=== PATIENT | female | born 1990 | race African-American/Black ===

== ENCOUNTER 2016-05-05 20:41 | Emergency (ER) | payer OTHER ==
[~2016-05-05] VITALS: Ht 160 cm; Wt 84.8 kg
[~2016-05-05 20:41] MED LIST: APAP W/CODEINE1 TA2 PO; BACTRIM DS TAB1 EACH PO; COLACE100 MG PO; DAY-TIME COLD-1 EACH PO; FERROUS GLUCON325 M4 PO; FLAGYL500 MG PO; FLUOXETINE HCL10 M1 PO; IBUPROFEN 400400 M2 PO; IBUPROFEN 600600 M1 PO; IRON325 PO; NORCO 5-325 TA1 EACH PO; PENICILLIN V P500 MG PO; PENICILLIN VK500 MG PO; PHENERGAN 25 MG25 M1 PO; PREDNISONE 20 M20 M1 PO; PREDNISONE50 MG PO; SEROQUEL 50 MG50 M1 PO; TESSALON PERLE100 MG PO; TRINATE TABLET1 TAB PO; TYLENOL W/CODEI1 TA2 PO; VENTOLIN HFA 1818 GM INH; ZOFRAN ODT4 MG PO; ZPAK PO
[2016-05-05] MEDS ORDERED: SERTRALINE HCL50 MG PO (21:14)
[2016-05-05 21:37] LABS: URINE BILIRUBIN NEGATIVE (Negative); URINE BLOOD TRACE (Negative); URINE COLOR YELLOW; URINE GLUCOSE-RANDOM* NEGATIVE (Negative); URINE KETONES NEGATIVE (Negative); URINE NITRITE NEGATIVE (Negative); URINE PROTEIN (DIPSTICK) NEGATIVE (Negative); URINE SPECIFIC GRAVITY 1.025 (1.003-1.035)
[2016-05-05 21:50] LABS: ABSOLUTE NEUTROPHILS 3.4 thou/uL (1.4-8.2); EOSINOPHILS 4.6 % (0.0-3.0); HEMATOCRIT 32.3 % (37.0-47.0); HEMOGLOBIN 10.6 gm/dL (12.0-15.0); LYMPHOCYTES 44.7 % (24.0-44.0); MCH 27.7 pg (26.0-34.0); MCHC 32.7 % (28.0-37.0); MCV 84.7 fL (80.0-100.0); MONOCYTES 7.3 % (1.0-8.0); PLATELET COUNT 267 thou/uL (150-400); POLYS 42.4 % (36.0-66.0); RBC 3.81 mil/uL (4.20-5.00); RDW 15.9 % (10.5-14.5)
[2016-05-05 21:54] LABS: CASTS None Seen /LPF (None Seen); CRYSTALS None Seen /LPF (None Seen); SQUAMOUS 0-3 Few /LPF (0-3); URINE WBC None Seen /HPF (0-5)
[2016-05-05 21:55] LABS: BACTERIA 1-9 Few /HPF (None Seen); URINE RBC 0-2 Rare /HPF (0-2)
[2016-05-05 21:56] LABS: MANUAL DIFF NO
[2016-05-05 22:01] LABS: ANION GAP 8 mmol/L (7-16); BUN 12 mg/dL (7-18); CALCIUM 8.9 mg/dL (8.5-10.1); CHLORIDE 105 mmol/L (98-107); CO2 27 mmol/L (21-32); CREATININE 0.9 mg/dL (0.6-1.3); GLUCOSE 96 mg/dL (70-99); SODIUM 140 mmol/L (136-145)
[2016-05-05 22:07] LABS: ALBUMIN 3.5 g/dL (3.4-5.0); ALKALINE PHOSPHATASE 65 U/L (46-116); DIRECT BILIRUBIN < 0.1 mg/dL (<0.1-0.3); SGOT 6 U/L (15-37); SGPT 16 U/L (30-65); TOTAL BILIRUBIN 0.2 mg/dL (<0.1-1.0); TOTAL PROTEIN 7.8 g/dL (6.4-8.2)
[2016-05-05] MEDS ORDERED: TIZANIDINE HCL4 MG PO (22:47)
[2016-05-05 22:59] VITALS: BP 113/63
== END 2016-05-05 22:59 | disposition home or self-care (01) ==
LOC: ER 20:41
PROVIDERS: Nurse Practitioner
DX: S39.012A Strain of muscle, fascia and tendon of lower back, initial encounter (principal); L29.9 Pruritus, unspecified; Z87.891 Personal history of nicotine dependence; X58.XXXA Exposure to other specified factors, initial encounter; Y93.89 Activity, other specified; Y92.89 Other specified places as the place of occurrence of the external cause; Y99.8 Other external cause status

== ENCOUNTER 2016-05-08 06:49 | Emergency (ER) | payer OTHER ==
[~2016-05-08] VITALS: Ht 162.6 cm; Wt 84.8 kg
[~2016-05-08 06:49] MED LIST changes: +SERTRALINE HCL50 MG PO; +TIZANIDINE HCL4 MG PO
[2016-05-08 07:50] VITALS: BP 106/57
[2016-05-08] MEDS ORDERED: PREDNISONE 20 M20 MG PO (08:00)
[2016-05-08] MEDS ORDERED: ALLEGRA ALLERG180 MG PO (08:00)
== END 2016-05-08 08:21 | disposition home or self-care (01) ==
LOC: ER 06:49
DX: T78.40XA Allergy, unspecified, initial encounter (principal); X58.XXXA Exposure to other specified factors, initial encounter; Z87.891 Personal history of nicotine dependence; F10.99 Alcohol use, unspecified with unspecified alcohol-induced disorder